=== PATIENT | female | born 1965 | race Two or more races ===

== ENCOUNTER 2017-08-20 15:22 | Emergency (ER) | payer BC ==
[~2017-08-20] VITALS: Ht 160 cm; Wt 63.5 kg
[2017-08-20] MEDS ORDERED: ZOLP5TAB2 PO (15:33)
[2017-08-20] MEDS ORDERED: SULFAMETH/TRIMETH 800/160 MG TABLET PO ONE (16:00)
[2017-08-20] MEDS ORDERED: HYDROCODONE/APAP 10-325 MG TABLET PO ONE (16:00)
--- NOTE | 2017-08-20 16:02 | NUR ---
Patient discharged to home in stable conditon. Written and verbal after care instructions given to patient. Patient verbalizes understanding of instructions.
[2017-08-20] MEDS ORDERED: HYDROCODONE/APAP 10-325 MG TABLET ONE (16:13)
[2017-08-20] MEDS ORDERED: SULFAMETH/TRIMETH 800/160 MG TABLET ONE (16:14)
== END 2017-08-20 16:03 | disposition home or self-care (01) ==
LOC: ER 15:23
DX: N75.1 Abscess of Bartholin's gland (principal)
CPT/HCPCS: 99283; A4663